=== PATIENT | female | born 1970 | race Caucasian/White ===

== ENCOUNTER 2018-08-09 13:13 | Emergency (ER) | payer OTHER ==
[~2018-08-09 13:13] MED LIST: GABA100C PO; LEVO150T5 PO; OXYC-307 PO; TIZA2CAP2 PO
== END 2018-08-09 14:50 | disposition left against medical advice (07) ==
LOC: ED 14:40
DX: R51 Headache (principal); Z53.21 Procedure and treatment not carried out due to patient leaving prior to being seen by health care provider

== ENCOUNTER 2018-08-09 20:50 | Emergency (ER) | payer MEDICAID, OTHER ==
[~2018-08-09] VITALS: Ht 160 cm; Wt 69.9 kg
[2018-08-09 22:11] VITALS: BP 114/73
== END 2018-08-09 23:10 | disposition home or self-care (01) ==
LOC: ED 21:54
DX: S00.83XA Contusion of other part of head, initial encounter (principal); G89.29 Other chronic pain; Y04.8XXA Assault by other bodily force, initial encounter; Y93.89 Activity, other specified; Y92.410 Unspecified street and highway as the place of occurrence of the external cause; Y99.8 Other external cause status
CPT/HCPCS: 70486; 99284

== ENCOUNTER 2018-08-12 12:58 | Emergency (ER) | payer MEDICAID | END 2018-08-12 13:31 | disposition left against medical advice (07) | LOC: ED 13:25 | DX: Z53.21 Procedure and treatment not carried out due to patient leaving prior to being seen by health care provider (principal) ==

== ENCOUNTER 2020-04-12 08:14 | Emergency (ER) | payer MEDICAID ==
[~2020-04-12] VITALS: Ht 157.5 cm; Wt 81.0 kg
[~2020-04-12 08:14] MED LIST changes: +CYCL-259 PO; +DOXE25CA PO; +LEVO150T PO; +PARO20TA4 PO
[2020-04-12 08:54] LABS: BASOPHILS # (AUTO) 0.04 x10^3/uL (0-0.1); BASOPHILS % (AUTO) 0 % (0-1); EOSINOPHILS # (AUTO) 0.72 x10^3/uL (0-0.4); EOSINOPHILS % (AUTO) 8 % (1-7); LYMPHOCYTES # (AUTO) 1.93 x10^3/uL (1-3.4); LYMPHOCYTES % (AUTO) 21 % (22-44); MD NO; MEAN CORPUSCULAR HEMOGLOBIN 31.4 pg (27.0-34.8); MEAN CORPUSCULAR HGB CONC 32.2 g/dL (32.4-35.8); MEAN CORPUSCULAR VOLUME 97.3 fL (80-100); MEAN PLATELET VOLUME 6.8 fL (7.4-10.4); MONOCYTES # (AUTO) 0.65 x10^3/uL (0.2-0.8); MONOCYTES % (AUTO) 7 % (2-9); NEUTROPHILS # (AUTO) 6.02 x10^3/uL (1.8-6.8); NEUTROPHILS % (AUTO) 64 % (42-75); PLATELET COUNT 424 x10^3/uL (130-400); RED CELL DISTRIBUTION WIDTH 13.7 % (9.6-15.2)
[2020-04-12 09:07] LABS: ALBUMIN 3.7 g/dL (3.4-5.0)
[2020-04-12 09:08] LABS: CREATININE 1.03 mg/dL (0.55-1.02)
[2020-04-12 09:20] LABS: CHLORIDE 107 mmol/L (98-107)
[2020-04-12 09:21] LABS: ANION GAP 5 mmol/L (5-15)
--- NOTE | 2020-04-12 10:02 | NUR ---
PT CAME IN CO OF SORE THROAT AND DRY COUGH. PT RESTING IN [facility]. LABS DRAW. BLANKET PROVIDED. CALL LIGHT WITHIN REACH
[2020-04-12] MEDS ORDERED: KETOROLAC 30 MG/1 ML ONE (10:28)
[2020-04-12] MEDS ORDERED: KETOROLAC 30 MG/1 ML IM ONE (10:30)
[2020-04-12 10:40] VITALS: BP 127/81
== END 2020-04-12 11:23 | disposition home or self-care (01) ==
LOC: ED 08:53
DX: R42 Dizziness and giddiness (principal); R07.9 Chest pain, unspecified; B34.9 Viral infection, unspecified
CPT/HCPCS: 36415; 71046; 80048; 82040; 85025; 93005; 96372; 99285; J1885

== ENCOUNTER 2020-05-19 10:02 | Emergency (ER) | payer MEDICAID ==
[~2020-05-19] VITALS: Ht 157.5 cm; Wt 79.7 kg
[2020-05-19 10:11] VITALS: BP 125/93
[2020-05-19] MEDS ORDERED: NAPR220C2 PO (10:42)
[2020-05-19] MEDS ORDERED: DIPH25CA61 PO (10:42)
[2020-05-19] MEDS ORDERED: IBUP-1902 PO (10:42)
[2020-05-19] MEDS ORDERED: cephalexin PO (10:42)
--- NOTE | 2020-05-19 11:20 | NUR ---
DEJUAN SULLIVAN CALLED PER KAROLYN VANCE FOR CONSULT TO HELP PT WITH RESOURCES. PT DENIES SI OR HI.
== END 2020-05-19 11:57 | disposition home or self-care (01) ==
LOC: ED 11:10
DX: F41.1 Generalized anxiety disorder (principal)
CPT/HCPCS: 99283; Q0177